=== PATIENT | female | born 1950 | race Caucasian/White ===

== ENCOUNTER 2016-10-05 12:06 | Day surgery (SDC) | payer MEDICARE, OTHER ==
--- NOTE | ~2016-10-05 | OP ---
Record Of Operation [facility] [address] [place]. [address] NAME: JAISON DODSON : 52 STATUS : [facility]#: [id number] AGE: 66 ADM/REG DATE : 10/05/16 MR#: [id number] REPORT SERV DATE: 10/05/16 DICTATED BY: RIDGE HENDERSON III DATE: 10/05/16 REPORT STATUS : Draft TRANSCRIBED BY: MODL DATE: 10/05/16 DATE OF PROCEDURE: 10/05/2016 PREOPERATIVE DIAGNOSIS: Infected left olecranon bursa. POSTOPERATIVE DIAGNOSIS: Infected left olecranon bursa. SURGICAL PROCEDURE PERFORMED: Excision of left olecranon bursa. SURGEON: Ridge Henderson M.D. DOCUMENT CONTROL SPECIALIST: Ghazala León. ANESTHESIA: General. ANTIBIOTICS: Vancomycin 1 g. COMPLICATIONS: None. TOURNIQUET TIME: 8 minutes. ESTIMATED BLOOD LOSS: 20 mL. CRYSTALLOID: 600 mL. PROCEDURE IN DETAIL: The patient was brought to the operating room, placed on the table in supine position, and general anesthesia was induced. Vancomycin 1 g was administered intravenously in the operating room. Pneumatic tourniquet was applied to left upper extremity. Left upper extremity was prepped and draped in the usual sterile fashion. It was exsanguinated with a 4-inch Esmarch. Tourniquet was inflated to 250 mmHg. The arm was flexed over the chest. The ulnar nerve was identified, marked and an incision was made directly over the left olecranon bursa. Purulent material was encountered. The skin incision was made. Aerobic and anaerobic cultures were obtained. Medial-lateral dissection was carried out around the olecranon bursa and this was debrided sharply with a #15 blade. There appeared to be some involvement of the triceps tendon and some of those was debrided as well. Thorough irrigation was carried out with a Waterpik machine. Tourniquet was released after eight minutes. Bleeding was controlled with Bovie electrocautery. Subcutaneous tissue was closed with inverted 3-0 Vicryl and the skin was closed using running 4-0 nylon. Sterile dressings were applied. A 10 mL Marcaine solution 0.5% plain was injected into the wound for postoperative pain control prior to placement of the dressings. The patient tolerated the procedure well and brought to the recovery room in satisfactory condition. There were no intraoperative, postoperative, or anesthetic complications. All instrument, needle, sponge, and lap counts were correct. Record Of Operation [place] [id number] [facility] [place]. [address] NAME: JAISON DODSON : 52 STATUS : [facility]#: [id number] AGE: 66 ADM/REG DATE : 10/05/16 MR#: [id number] REPORT SERV DATE: 10/05/16 DICTATED BY: RIDGE HENDERSON III DATE: 10/05/16 REPORT STATUS : Draft TRANSCRIBED BY: MODL DATE: 10/05/16 TB/JORDON Ridge Henderson III, M.D. / [id number] CC: Franklyn Parks III, TRACY G
[~2016-10-05 12:06] MED LIST: ALEVE220 MG PO; CENTRUM PO; CHROMIUM PIC OR; CHROMIUM PIC500 MCG OR; CLARIT10 PO; HERBS; LORCET PO; NORCO1 TAB PO; OXYCODONE/APAP PO; PROAIRRESP INH; RANITIDINE300 MG PO; SIMETHICON PO; SINGULAIR1 PO; SYMBICORT 160/41 INH INH; T PO; WELLSR150 PO; [UNRECOGNIZED DRUG - OTHER] PO
[2016-10-05 13:08] LABS: BASOPHILS 0.6 %; BASOPHILS ABSOLUTE 0.06 10/3/uL (0.0-0.16); EOSINOPHILS 3.4 %; EOSINOPHILS ABSOLUTE 0.32 10/3/uL (0.0-0.53); HEMATOCRIT 34.7 % (36.0-48.0); HEMOGLOBIN 11.1 g/dL (12.0-16.0); IMMATURE GRANULOCYTES 3.7 %; IMMATURE GRANULOCYTES ABSOLUTE 0.35 10/3/uL (0.0-0.11); LYMPHOCYTES 22.5 %; LYMPHOCYTES ABSOLUTE 2.15 10/3/uL (0.67-4.30); MEAN CORPUSCULAR HEMOGLOB 31.9 pg (26.0-34.0); MEAN CORPUSCULAR VOLUME 99.7 fL (80-100); MEAN PLATELET VOLUME 8.3 fL (9.2-13.0); MONOCYTES 8.2 %; MONOCYTES ABSOLUTE 0.78 10/3/uL (0.21-1.20); NEUTROPHILS 61.6 %; NEUTROPHILS ABSOLUTE 5.89 10/3/uL (2.02-8.40); PLATELET COUNT 434 10/3/uL (150-400); RBC DISTRIBUTION WIDTH 15.1 % (12.0-16.0); RED CELL COUNT 3.48 10/6/uL (4.0-5.6); WHITE BLOOD CELLS 9.6 10/3/uL (4.5-10.5)
[2016-10-05 13:09] LABS: MANUAL DIFF NO %
[2016-10-05 13:17] LABS: BUN (BLOOD UREA NITROGEN) 22 MG/DL (6-23); CHLORIDE, SERUM 110 MMOL/L (96-112); CO2 (CARBON DIOXIDE) 30 MMOL/L (24-34); CREATININE 0.93 MG/DL (0.55-1.02); GFR AFRICAN AMERICAN 75 ML/MIN (>=60); GFR NON AFRICAN AMERICAN 64 ML/MIN (>=60); GLUCOSE, SERUM 83 MG/DL (60-99); SODIUM, SERUM 141 MMOL/L (135-148)
== END 2016-10-05 18:39 | disposition home or self-care (01) ==
LOC: SDC 12:06
PROVIDERS: Orthopaedic Surgery
PROC: 0MB40ZZ Excision of Left Elbow Bursa and Ligament, Open Approach (ICD-10-PCS; principal; 2016-10-05 14:15)
DX: M71.122 Other infective bursitis, left elbow (principal); J44.9 Chronic obstructive pulmonary disease, unspecified; M19.90 Unspecified osteoarthritis, unspecified site; M81.0 Age-related osteoporosis without current pathological fracture; M06.9 Rheumatoid arthritis, unspecified; K21.9 Gastro-esophageal reflux disease without esophagitis; F41.9 Anxiety disorder, unspecified; R25.2 Cramp and spasm; Z99.81 Dependence on supplemental oxygen; Z88.0 Allergy status to penicillin; Z79.1 Long term (current) use of non-steroidal anti-inflammatories (NSAID); Z79.899 Other long term (current) drug therapy; Z90.89 Acquired absence of other organs; Z98.890 Other specified postprocedural states; Z87.891 Personal history of nicotine dependence; Z90.49 Acquired absence of other specified parts of digestive tract; Z90.710 Acquired absence of both cervix and uterus
CPT/HCPCS: 80048; 85025; 87070; 87075; 87077; 87186; 87205; 88304; 93005; J1885; J2405; J3010; J3370